=== PATIENT | female | born 1965 | race Caucasian/White ===

== ENCOUNTER 2019-12-25 18:57 | Emergency (ER) | payer MEDICARE ==
[~2019-12-25] VITALS: Ht 157.5 cm; Wt 70.3 kg
[~2019-12-25 18:57] MED LIST: CEPHALEXIN 500500 M3 PO; CYMBALTA20 MG; GABAPENTIN100 MG; LEVOTHYROXIN0.025 MG; LUMIGAN2.5 M1; PROZAC10 MG; TRIAMCINOLONE A80 G2 TOP
[2019-12-25 19:06] VITALS: BP 118/59
[2019-12-25 19:40] LABS: ABSOLUTE BASOPHILS 0.1 thou/uL (0.0-0.2); ABSOLUTE EOSINOPHILS 0.2 thou/uL (0.0-0.7); ABSOLUTE LYMPHOCYTES 1.1 thou/uL (0.8-5.3); ABSOLUTE MONOCYTES 0.5 thou/uL (0.0-1.2); ABSOLUTE NEUTROPHILS 2.2 thou/uL (1.6-8.1); BASOPHILS 1.3 %; EOSINOPHILS 6.1 %; HEMATOCRIT 42.7 % (37.0-47.0); HEMOGLOBIN 14.7 gm/dL (12.0-15.0); LYMPHOCYTES 27.2 %; MCH 32.4 pg (26.0-34.0); MCHC 34.4 g/dL (28.0-37.0); MONOCYTES 11.6 %; MPV 8.8 fl. (7.2-11.1); NUCLEATED RBCS 0 /100WBC; PLATELET COUNT* 209 thou/uL (150-400); POLYS 53.8 %; RBC 4.54 mil/uL (4.20-5.00); RDW-CV 13.6 % (10.5-14.5)
[2019-12-25 19:47] LABS: CALCIUM 9.9 mg/dL (8.5-10.1); CREATININE 0.9 mg/dL (0.6-1.3); POTASSIUM 3.8 mmol/L (3.5-5.1)
[2019-12-25] MEDS ORDERED: CEPHALEXIN500 MG PO (20:06)
[2019-12-25] MEDS ORDERED: HYDROCODON-ACE1 EAC8 PO (20:06)
== END 2019-12-25 20:21 | disposition home or self-care (01) ==
LOC: M.ERS 18:57
PROVIDERS: Emergency Medicine
DX: R21 Rash and other nonspecific skin eruption (principal); E03.9 Hypothyroidism, unspecified; M79.7 Fibromyalgia; F32.9 Major depressive disorder, single episode, unspecified

== ENCOUNTER 2020-04-14 16:53 | Emergency (ER) | payer MEDICARE ==
[~2020-04-14] VITALS: Ht 157.5 cm; Wt 68.0 kg
[~2020-04-14 16:53] MED LIST changes: +CEPHALEXIN500 MG PO; +HYDROCODON-ACE1 EAC8 PO
[2020-04-14] MEDS ORDERED: LEXAPRO20 MG PO (17:06)
[2020-04-14] MEDS ORDERED: SYNTHROID100 MC1 PO (17:06)
[2020-04-14] MEDS ORDERED: TRILEPTAL150 MG PO (17:07)
[2020-04-14] MEDS ORDERED: NORCO 5-325 TA1 EAC2 PO (18:23)
[2020-04-14] MEDS ORDERED: MEDROLDOSEPACK PO (18:23)
[2020-04-14] MEDS ORDERED: IBUPROFEN 800800 M1 PO (18:23)
[2020-04-14 18:33] VITALS: BP 122/75
== END 2020-04-14 18:34 | disposition home or self-care (01) ==
LOC: M.ERS 16:53
DX: M25.512 Pain in left shoulder (principal); E03.9 Hypothyroidism, unspecified; M79.7 Fibromyalgia; Z79.899 Other long term (current) drug therapy; X50.1XXA Overexertion from prolonged static or awkward postures, initial encounter; Y93.K1 Activity, walking an animal; Y92.89 Other specified places as the place of occurrence of the external cause; Y99.9 Unspecified external cause status

== ENCOUNTER → 2020-04-21 | Outpatient (CLI) | payer MEDICARE ==
[~2020-04-21] MED LIST changes: +IBUPROFEN 800800 M1 PO; +LEXAPRO20 MG PO; +MEDROLDOSEPACK PO; +NORCO 5-325 TA1 EAC2 PO; +SYNTHROID100 MC1 PO; +TRILEPTAL150 MG PO
== END ==
LOC: M.MRI 08:13
PROVIDERS: ATTEND Family Medicine
DX: S46.002A Unspecified injury of muscle(s) and tendon(s) of the rotator cuff of left shoulder, initial encounter (principal); S40.012A Contusion of left shoulder, initial encounter; M19.012 Primary osteoarthritis, left shoulder; M67.412 Ganglion, left shoulder